=== PATIENT | male | born 1995 | race African-American/Black ===

== ENCOUNTER 2021-05-31 15:29 | Emergency (ER) | payer MEDICAID ==
[~2021-05-31] VITALS: Ht 167.6 cm; Wt 72.0 kg
[2021-05-31 16:17] LABS: BASOPHILS % 0.3 % (0.0-2.0); EOSINOPHILS % 1.8 % (0.0-5.0); HEMATOCRIT. 48.8 % (42.0-52.0); HEMOGLOBIN. 16.1 g/dL (14.0-18.0); LYMPHOCYTES % 14.2 % (20.0-50.0); MEAN CORPUSCULAR HEMOGLOBIN 27.2 pg (28.0-32.0); MEAN CORPUSCULAR VOLUME 82.8 fL (80.0-94.0); MEAN PLATELET VOLUME 7.6 fl (7.4-10.4); MONOCYTES % 8.9 % (2.0-8.0); NEUTROPHILS % 74.8 % (40.0-76.0); PLATELET 331 x1000/uL (130-400); RED CELL DISTRIBUTION WIDTH 14.2 % (11.6-14.6)
[2021-05-31 16:34] LABS: CHLORIDE 104 mEq/L (98-107)
[2021-05-31] MEDS ORDERED: IBUP-2029 MT (16:57)
[2021-05-31] MEDS ORDERED: KETOROLAC 30MG/ML VIAL IV ONE (17:00)
[2021-05-31 17:47] VITALS: BP 137/83
== END 2021-05-31 17:51 | disposition home or self-care (01) ==
LOC: ER 15:29
DX: R07.89 Other chest pain (principal); F12.10 Cannabis abuse, uncomplicated
CPT/HCPCS: 36415; 71045; 80053; 83880; 84484; 85025; 93005; 99285; A4217; J1885

== ENCOUNTER 2024-01-15 13:49 | Emergency (ER) | payer MEDICAID ==
[~2024-01-15] VITALS: Ht 167.6 cm; Wt 70.3 kg
[~2024-01-15 13:49] MED LIST: IBUP-2029 MT
[2024-01-15 13:54] VITALS: BP 131/86; PULSE 92; RESP 16; TEMP 98.1; O2SAT 98
== END 2024-01-15 14:30 | disposition left against medical advice (07) ==
LOC: ER 13:49
DX: R68.89 Other general symptoms and signs (principal); Z53.21 Procedure and treatment not carried out due to patient leaving prior to being seen by health care provider